=== PATIENT | female | born 1985 | race Caucasian/White ===

== ENCOUNTER → 2017-09-04 11:56 | Outpatient (CLI) | payer BC ==
[2012-10-25 08:25] VITALS: BMI 38.5
[~2017-09-04 11:56] MED LIST: HYDROCODON-ACE1 EAC7 PO; PEPCID20 MG PO; SYNTHROID25 MCG PO; TORADOL10 MG PO
[2017-09-18 23:06] VITALS: BMI 44.0
== END | disposition home or self-care (01) ==
LOC: D.LDO 11:56
DX: O30.009 Twin pregnancy, unspecified number of placenta and unspecified number of amniotic sacs, unspecified trimester (principal)

== ENCOUNTER → 2017-09-13 17:21 | Outpatient (CLI) | payer BC ==
[2012-10-25 08:25] VITALS: BMI 38.5
[2017-09-13 18:18] LABS: BASOPHILS 0.1 % (0-2); EOSINOPHILS 1.1 % (0-7); HEMATOCRIT 33.2 % (36.0-48.0); HEMOGLOBIN 11.1 g/dL (12-16); IMMATURE GRANULOCYTES 0.4 % (0-5); LYMPHOCYTES 18.7 % (15-50); MCHC 33.4 g/dL (31.0-37.0); MCV 95.7 fL (80.0-100.0); MEAN PLATELET VOLUME 10.9 fL (7.4-10.4); MONOCYTES 8.2 % (2-11); NEUTROPHILS 71.5 % (40-80); PLATELET COUNT 268 10x3/uL (130-400); RBC 3.47 10x6/uL (4.00-5.40); RDW 13.8 % (11.5-14.5); WBC 11.3 10x3/uL (4.8-10.8)
[2017-09-13 18:58] LABS: ALBUMIN 2.3 g/dL (3.4-5.0); ALKALINE PHOSPHATASE 163 U/L (46-116); ALT (SGPT) 16 U/L (10-68); BILIRUBIN - DIRECT 0.08 mg/dL (0.00-0.30); BILIRUBIN - INDIRECT 0.22 mg/dL (0.00-1.00); CALC OSMOLALITY 273 mosm/kg (275-300); CALCIUM 8.9 mg/dL (8.5-10.1); CARBON DIOXIDE 19.8 mmol/L (21.0-32.0); CHLORIDE - SERUM 105 mmol/L (98-107); CREATININE - SERUM 0.6 mg/dL (0.6-1.3); GLUCOSE 105 mg/dL (74-106); POTASSIUM - SERUM 4.1 mmol/L (3.5-5.1); PROTEIN - SERUM 5.6 g/dL (6.4-8.2); SODIUM 138 mmol/L (136-145); UREA NITROGEN 8 mg/dL (7-18); URIC ACID 3.9 mg/dL (2.6-7.2); eGFR NON AFRICAN AMERICAN > 90 mL/min (90-120)
[2017-09-13 20:00] LABS: APPEARANCE CLEAR (CLEAR); BILIRUBIN NEGATIVE (NEGATIVE); COLOR YELLOW (YELLOW); GLUCOSE NEGATIVE (NEGATIVE); KETONE NEGATIVE (NEGATIVE); NITRITE NEGATIVE (NEGATIVE); PROTEIN NEGATIVE (NEGATIVE); SPECIFIC GRAVITY 1.015 (1.005-1.020); UROBILINOGEN NORMAL (NORMAL)
[2017-09-14 20:16] LABS: PROTEIN - URINE 20.5 mg/dL (0.0-11.9)
[2017-09-18 23:06] VITALS: BMI 44.0
== END | disposition home or self-care (01) ==
LOC: D.LDO 17:21
PROVIDERS: Obstetrics & Gynecology
DX: O26.893 Other specified pregnancy related conditions, third trimester (principal); Z3A.37 37 weeks gestation of pregnancy; R10.30 Lower abdominal pain, unspecified; R10.2 Pelvic and perineal pain; R60.9 Edema, unspecified; W19.XXXA Unspecified fall, initial encounter; Y93.89 Activity, other specified; Y92.019 Unspecified place in single-family (private) house as the place of occurrence of the external cause

== ENCOUNTER 2017-09-18 20:50 | Inpatient (IN) | payer BC ==
[~2017-09-18] VITALS: Ht 157.5 cm; Wt 108.9 kg
--- NOTE | ~2017-09-18 | DS ---
PATIENT:DALLAS ODOM :85 MEDICAL RECORD: [id number] DISCHARGE SUMMARY ADMISSION DATE: 09/18/17 DISCHARGE DATE: 09/22/17 DATE OF ADMISSION: 09/18/2017 DATE OF DISCHARGE: 09/22/2017 ADMISSION DIAGNOSIS: Twins at term. DISCHARGE DIAGNOSIS: Twins delivered at term. PROCEDURES: 1. Induction of labor with vaginal delivery of twins. 2. Vaginal laceration. ATTENDING PHYSICIAN: Dr. Jasper Barraza. HISTORY OF PRESENT ILLNESS: See the H&P in the chart. SUMMARY OF HOSPITALIZATION: The patient was admitted to the hospital and underwent induction with delivery of twins. The patient has done well and at the time of discharge reports minimal amount of lochia with adequate pain control on Aurora and Toradol. The patient will continue on this for her pain management. The standard precautions have been reviewed. Follow up in 6 weeks. TRANSINT:[id number] Voice Confirmation ID: [id number] DOCUMENT ID: [id number] JASPER BARRAZA MD CC: [id number] DICTATION DATE: 09/22/17 1301 FINISHED GOODS INSPECTOR: 09/22/17 213 DIS IN 09/22/17 [facility] [address] [place] [address]
--- NOTE | ~2017-09-18 | OP ---
PATIENT NAME: DALLAS ODOM MEDICAL RECORD: [id number] :85 LOCATION:[id number] ADMISSION DATE:09/18/17 SURGEON: PARVEEN BARRAZA MD DATE OF OPERATION: 09/19/2017 PREDELIVERY DIAGNOSES: 1. Twins at term. 2. -induced hypertension. POSTDELIVERY DIAGNOSES: 1. Twins at term. 2. -induced hypertension. PROCEDURE: Induction of labor with vaginal delivery. ATTENDING: Parveen Barraza MD ANESTHESIOLOGIST: Misael Oglesby MD ANESTHETIC: Continuous lumbar epidural. DESCRIPTION OF DELIVERY: Upon completion, the patient was taken to the operating room, where twin A was delivered via normal spontaneous vaginal delivery. The infant presents as occiput posterior. Significant second-degree laceration extends from the introitus to the right sulcus. After delivery, the cord was clamped and cut. A ligature was used to adrian the placenta of twin A and it was cut short. The twin B was still found to be in a vertex presentation and the cervix closed to approximately 7 cm with the leading portion in the lower uterine segment. Using #0 Vicryl stitch, the bleeding vessels of the large laceration were closed and the patient was sent back to the laboring room where, after spontaneous rupture of membrane and greater than a hour of time, twin B presents on the perineum and was delivered over a single expulsive effort. Twin A weight is 6 pounds 1 ounce with Apgars 9 and 9. Twin B is 6 pounds 8 ounces, again with Apgars 9 and 9. The laceration was closed superiorly to inferiorly with a running locked stitch of 2-0 chromic. Once the introitus was reached, the stellate laceration was closed utilizing 2-0 chromic as well as 4-0 chromic run through and through the skin. Given the large defect that was created from this vaginal laceration, Kerlix was placed into the vagina and a Mora catheter was started. EBL: 475 cc. DISPOSITION: Mother recovered in room. Infants are taken to the nursery for transition. TRANSINT:[id number] Voice Confirmation ID: [id number] DOCUMENT ID: [id number] OPERATIVE REPORT [id number] DALLAS ODOM PARVEEN BARRAZA MD at 1307 CC: [id number] DICTATION DATE: 09/19/17 1737 THERAPIST RRT: 09/19/17 2226 ADM IN [place] [id number] [place] [id number]
[2017-09-18 22:09] LABS: HEMATOCRIT 34.1 % (36.0-48.0); HEMOGLOBIN 11.5 g/dL (12-16); MCH 31.9 pg (26.0-34.0); MCHC 33.7 g/dL (31.0-37.0); MCV 94.7 fL (80.0-100.0); MEAN PLATELET VOLUME 11.3 fL (7.4-10.4); RBC 3.6 10x6/uL (4.00-5.40); RDW 13.9 % (11.5-14.5); WBC 8.3 10x3/uL (4.8-10.8)
[2017-09-18] MEDS ORDERED: SYNTHROID25 MCG PO (23:05)
[2017-09-18 23:06] VITALS: BP 140/93; Ht 157.5 cm; Wt 108.9 kg
[2017-09-18] MEDS ORDERED: PEPCID20 MG PO (23:06)
[2017-09-19 01:16] LABS: APPEARANCE CLOUDY (CLEAR); BILIRUBIN NEGATIVE (NEGATIVE); COLOR YELLOW (YELLOW); GLUCOSE NEGATIVE (NEGATIVE); KETONE NEGATIVE (NEGATIVE); NITRITE NEGATIVE (NEGATIVE); PROTEIN 1+ mg/dL (NEGATIVE); UROBILINOGEN NORMAL (NORMAL)
[2017-09-19 01:18] LABS: BACTERIA MANY /hpf (NONE SEEN); EPITHELIAL CELLS 0-5 /hpf (0-5); RED CELLS - URINE 0-5 /hpf (0-5)
[2017-09-19 20:05] VITALS: BP 164/92
[2017-09-19 23:47] VITALS: BP 165/98
[2017-09-20 07:30] LABS: RAPID PLASMA REAGIN Non Reactive (Non Reactive)
[2017-09-20 07:32] VITALS: BP 140/78
[2017-09-20 11:59] VITALS: BP 125/60
[2017-09-20 21:00] VITALS: BP 154/92
[2017-09-21 00:30] VITALS: BP 133/72
[2017-09-21 09:00] VITALS: BP 147/85
[2017-09-21 19:45] VITALS: BP 135/79
[2017-09-22 00:02] VITALS: BP 123/73
[2017-09-22 03:55] VITALS: BP 140/96
[2017-09-22 07:30] VITALS: BP 132/74
[2017-09-22] MEDS ORDERED: HYDROCODON-ACE1 EAC7 PO (14:13)
[2017-09-22] MEDS ORDERED: TORADOL10 MG PO (14:14)
== END 2017-09-22 14:45 | disposition home or self-care (01) | DRG 775 ==
LOC: D.LD 20:50 → D.SDCHOLD 20:50 → D.LD 21:00
PROVIDERS: Obstetrics & Gynecology
PROC: 3E033VJ Introduction of Other Hormone into Peripheral Vein, Percutaneous Approach (ICD-10-PCS; principal; 2017-09-18)
PROC: 10E0XZZ Delivery of Products of Conception, External Approach (ICD-10-PCS; 2017-09-19)
PROC: 0UQG7ZZ Repair Vagina, Via Natural or Artificial Opening (ICD-10-PCS; 2017-09-19)
DX: O13.4 Gestational [pregnancy-induced] hypertension without significant proteinuria, complicating childbirth (principal); Z3A.38 38 weeks gestation of pregnancy; Z37.2 Twins, both liveborn; O71.4 Obstetric high vaginal laceration alone; O30.043 Twin pregnancy, dichorionic/diamniotic, third trimester